=== PATIENT | female | born 1985 | race Hispanic/Latino ===

== ENCOUNTER 2017-01-10 08:27 | Inpatient (IN) | payer MEDICARE, OTHER ==
--- NOTE | 2017-01-10 09:06 | ED PDOC ---
Arrival/HPI - General Chief Complaint: Seizure Time Seen by Provider: 01/10/17 08:42 - History of Present Illness Narrative History of Present Illness (Text): 01/10/17 09:06 31yo female with hx of tuberous sclerosis and severe developmental delay, with mult seizures without return to baseline. Mother states she gave versed IM and pt has been placed on versed drip by EMS. Last seizure around 8am, and mother states pt is now back to baseline. States seizures were tonic contractions lasting [address] done within a month. Past Medical History - Provider Review Nursing Documentation Reviewed: Yes - Travel History If Yes, travel location?: [place] - Infectious Disease Hx of Infectious Diseases: None - Neurological Hx Seizures: Yes - HEENT Other/Comment: Non Verbal - Musculoskeletal/Rheumatological Other/Comment: Tuberous Sclerosis. VN Stimulator - Gastrointestinal Other/Comment: Peg Tube - Psychiatric Hx Substance Use: No - Surgical History Hx Cholecystectomy: Yes Other/Comment: VN Stimulator. Power Port. Peg Tube Family/Social History Family/Social History: Unknown Family HX Smoking Status: Never Smoked Hx Alcohol Use: No Hx Substance Use: No Allergies/Home Meds Allergies/Adverse Reactions: Allergies prochlorperazine [From Compazine] Allergy (Verified 01/10/17 08:42) ANAPHYLAXIS Causes patient to become unresponsive propofol Allergy (Verified 01/10/17 08:42) ANAPHYLAXIS Caused organ failure in patient vancomycin Allergy (Verified 01/10/17 08:42) ANAPHYLAXIS [place] Home Medications: Home Meds Medication Instructions Recorded Confirmed Brivaracetam [Briviact] 20 mg PO BID 01/10/17 01/10/17 Clobazam [Onfi] 20 mg PO BID 01/10/17 01/10/17 Clobazam [Onfi] 30 mg PO DAILY 01/10/17 01/10/17 Felbamate [Felbatol] 600 mg PO BID 01/10/17 01/10/17 Lansoprazole [Prevacid 24Hr] 5 ml PO BID 01/10/17 01/10/17 clonazePAM [clonAZEPAM] 1 mg PO TID 01/10/17 01/10/17 lamoTRIgine [LaMICtal] 125 mg PO TID 01/10/17 01/10/17 Review of Systems - Review of Systems Systems not reviewed;Unavailable: Altered Mental Status Physical Exam Appearance: Positive for: Non-Toxic, Comfortable Mental Status: No: Agitated, Lethargic - Systems Exam Head: Present: Atraumatic, Normocephalic Pupils: Present: PERRL Extroacular Muscles: Present: EOMI Conjunctiva: Present: Normal Mouth: Present: Moist Mucous Membranes Neck: Present: Normal Range of Motion Respiratory/Chest: Present: Clear to Auscultation, Good Air Exchange. No: Respiratory Distress, Accessory Muscle Use Cardiovascular: Present: Regular Rate and Rhythm, Normal S1, S2, Peripheal Pulses Present. No: Murmurs Abdomen: Present: Normal Bowel Sounds. No: Tenderness, Distention, Peritoneal Signs, Rebound, Guarding Back: Present: Normal Inspection Upper Extremity: Present: Normal Inspection. No: Cyanosis, Edema Lower Extremity: Present: Normal Inspection. No: Edema Neurological: Present: Motor Func Grossly Intact Skin: Present: Warm, Dry, Normal Color. No: Rashes Psychiatric: Present: Alert. No: Anxious, Agitated Medical Decision Making ED Course and Treatment: 01/10/17 09:01 31yo female with hx of tuberous sclerosis and severe developmental delay, with status epilepticus. Currently at baseline and not seizing. No acute findings on PE. No PM[place] [facility]. Joy in the ER, accepted to his service with Dr. Kern on consult mother aware of and agrees with plan - Lab Interpretations Lab Results: 01/10/17 09:27 01/10/17 09:27 Lab Results 01/10/17 09:29: PT 10.7, INR 0.99, APTT 24.3 01/10/17 09:27: Sodium 139, Potassium 4.5, Chloride 106, Carbon Dioxide 24, Anion Gap 14, BUN 10, Creatinine 0.7, Est GFR ( Amer) > 60, Est GFR (Non- Af Amer) > 60, Random Glucose 88, Calcium 8.4, Total Bilirubin 0.4, AST 39, ALT 70 H, Alkaline Phosphatase 145 H, Total Protein 6.5, Albumin 3.5, Globulin 3.0, Albumin/Globulin Ratio 1.2 01/10/17 09:27: WBC 7.7, RBC 3.78, Hgb 11.3 L, Hct 34.4 L, MCV 91.0, MCH 29.9, MCHC 32.8, RDW 13.5, Plt Count 342, MPV 8.4, Gran % 77.9 H, Lymph % (Auto) 18.2 L, [place] % (Auto) 3.7, Eos % (Auto) 0.1 L, Baso % (Auto) 0.1, Gran # 6.02, Lymph # 1.4, [place] # 0.3, Eos # 0.0, Baso # 0.01 I have reviewed the lab results: Yes Disposition/Present on Arrival - Present on Arrival Any Indicators Present on Arrival: No History of DVT/PE: No History of Uncontrolled Diabetes: No Urinary Catheter: No History of Decub. Ulcer: No History Surgical Site Infection Following: None - Disposition Have Diagnosis and Disposition been Completed?: Yes Diagnosis: Seizures Disposition: HOSPITALIZED Disposition Time: 09:01 Patient Plan: Admission Patient Problems: Current Active Problems Problem Status Onset Seizures Acute Condition: FAIR
[2017-01-10 09:35] LABS: BASO # 0.01 K/mm3 (0.0-2.0); BASO % 0.1 % (0.0-3.0); EOS % 0.1 % (1.5-5.0); GRAN # 6.02 (1.4-6.5); GRAN % 77.9 % (50.0-68.0); HEMOGLOBIN 11.3 gm/dL (12.0-16.0); LYMPH # 1.4 (1.2-3.4); LYMPH % 18.2 % (22.0-35.0); MEAN CORPUSCULAR HEMOGLOBIN 29.9 pg (25.0-35.0); MEAN CORPUSCULAR HGB CONC 32.8 g/dl (31.0-37.0); MEAN PLATELET VOLUME 8.4 fl (7.0-11.0); MONO # 0.3 (0.1-0.6); MONO % 3.7 % (1.0-6.0); PLATELET COUNT 342 10^3/uL (120.0-450.0); RBC 3.78 10^6/uL (3.5-6.1); RED CELL DISTRIBUTION WIDTH 13.5 % (11.5-14.5); WHITE BLOOD COUNT 7.7 10^3/ul (4.5-11.0)
[2017-01-10 09:45] LABS: ALB/GLOB RATIO 1.2 (1.1-1.8); ALBUMIN 3.5 g/dL (3.0-4.8); ALT/SGPT 70 U/L (7-56); AST/SGOT 39 U/L (15-39); BLOOD UREA NITROGEN 10 mg/dL (7-21); CALCIUM 8.4 mg/dL (8.4-10.5); GFR AFRICAN-AMERICAN > 60; GFR NON-AFRICAN AMERICAN > 60
[2017-01-10 09:48] LABS: INR 0.99 (0.93-1.08); PARTIAL THROMBOPLASTIN TIME 24.3 Seconds (23.7-30.8); PROTHROMBIN TIME 10.7 Seconds (9.9-11.8)
[2017-01-10] MEDS ORDERED: Midazolam 5 MG/5 ML VIAL IVP PRN (11:10)
[2017-01-10] MEDS ORDERED: Midazolam 100 mg/100ml in NS 100 MG/100 ML SOL IV PRN (11:13)
[2017-01-10] MEDS ORDERED: Sodium Chloride 0.45% 1,000 ML IV SCH (11:15)
[2017-01-10 12:15] VITALS: BMI 24.0
--- NOTE | 2017-01-10 14:32 | CON ---
DATE: 01/10/2017 CHIEF COMPLAINT: Seizures. HISTORY OF PRESENT ILLNESS: The patient is a 31-year-old female with history of tubular sclerosis and severe developmental delay with daily multiple seizures on 5 seizures medications Briviact, Onfi, felbamate, Lamictal, and has been compliant with her medications. According to her mother at bedside she is baseline, nonverbal, and follows very simple commands, but does feed herself. She was on a cruise ship, where she had breakthrough seizures and currently according to mother this is her baseline. She is currently with generalized tonic-clonic seizures lasting few seconds. Currently, she is on Versed 1 mg IV push q.4 hours p.r.n. just to break the seizures. Apparently, she is no longer seizing. She is doing well. She recently had a CAT scan previously. 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 She follows up with an epileptologist out of state. Mother is currently comfortable and saying this is her baseline. Currently, the patient is very drowsy. PAST MEDICAL HISTORY: Tubular sclerosis, severe developmental delay, and seizures. MEDICATIONS: Briviact, Onfi, felbamate, Lamictal, and clonazepam. ALLERGIES: ALLERGIC TO PROCHLORPERAZINE, PROPOFOL, AND VANCOMYCIN. FAMILY HISTORY: Noncontributory. SOCIAL HISTORY: No illicit drug use, smoking or EtOH abuse. REVIEW OF SYSTEMS: A 14-point review of system is negative except as in the HPI. PHYSICAL EXAMINATION: GENERAL: The patient is drowsy in no acute distress. VITAL SIGNS: Temperature 97.9, pulse rate 76, blood pressure 92/56, respiratory rate 18, and oxygen saturation 97% via nasal cannula of 2 L. HEENT: Head is atraumatic and normocephalic. PERRLA. Extraocular muscles intact. NECK: Supple. No JVD. No adenopathy noted. LUNGS: Clear to auscultation. No adventitious sounds. HEART: S1 and S2, normal rate and rhythm. No murmurs, rubs, or gallops. ABDOMEN: Soft, nontender, nondistended. Bowel sounds present. EXTREMITIES: Contracted at baseline. Peripheral pulses 2+ felt bilaterally. NEUROLOGIC: The patient is drowsy from the Versed, but cranial nerves II through XII intact. She is nonverbal at baseline. Withdrawals are localized. Spontaneous movements of the extremities are noted. Tone has contracted in upper and lower extremities from her underlying tubular sclerosis. 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 Sensory exam, withdrawal are localized, and toes are upcoming bilaterally. DTRs are 2+ throughout. Coordination and gait deferred for now. LABORATORY DATA: Sodium 139, potassium 4.5, chloride 106, carbon dioxide of 24, BUN 10, creatinine 0.7, and random glucose of 88. ASSESSMENT AND PLAN: This is a 31-year-old with history of tubular sclerosis, history of multiple seizures on 5 antiseizure medications and history of development delay and baseline nonverbal and follows only simple commands and does feed herself. She was on a cruise ship and had breakthrough seizures. Now was given Versed and seizures have stopped. She does have multiple seizures throughout the day. She really has 3 big seizures a month according to the mother. At this time, she is clinically neurologically stable. No further seizure activity. We will recommend to continue with home medications of Lamictal, brivaracetam, Clobazam, and felbamate on home dosages, which her mother will give her from her bag since we do not have it on formulary. Recommend to monitor in the ICU and give her Versed p.r.n. 1 mg IV push q.4 hours for seizure activity. At this time, she is neurologically stable and seizure-free and she is now back her baseline. Continue her present management and monitor electrolytes and correct accordingly. Thank you for this consult. Bari Kern MD
[2017-01-10] MEDS: Midazolam 2 MG/2 ML VIAL IVP SCH ×2 (14:37→22:30)
--- NOTE | 2017-01-10 16:03 | HP ---
SUBJECTIVE: I was called onto the emergency to see the patient. She is a 31-year-old developmentally delayed female with tuberculosis who comes in with ceasing. She has done this before. She is taken care by her mother who has been giving her IM Versed. She is on IV Versed drip from the ship, and she has not gone back to her baseline yet from [place] via [place]. She had a CAT scan done a month ago. She does this all the time she is coming back from her [employer] [place], history of seizures, nonverbal, tuberculosis with VN stimulator which is PEG tube. She has a history of cholecystectomy VN stimulator, power port PEG tube. FAMILY HISTORY: Unknown family. SOCIAL HSITORY: Never smoker, no alcohol, no drug. ALLERGIES: COMPAZINE, PROPOFOL AND VANCOMYCIN. MEDICATIONS: She is on Briviact, Onfi Prevacid, clonazepam, Lamictal and Versed as needed IN. On US system she is out of it. PHYSICAL EXAMINATION: GENERAL: Mentally, she just stairs. VITAL SIGNS: There are no vital signs on the chart or in the computer or in the notes in the dictation that I could find. HEENT: Atraumatic and normocephalic. EYES: Open, nonverbal. HEAR: Regular rate. Normal S1 and S2. LUNGS: Decreased breath sounds, but clear to auscultation bilaterally. ABDOMEN: Soft and nontender. Positive bowel sounds. No apparent guarding or rebound. EXTREMITIES: Have no edema. Her eyes are open. The skin is intact. Nonverbal. Thyroid midline, no appreciative lymphadenopathy anywhere. She did have a blood test done. It is 139 sodium, potassium 4.5, BUN 10, creatinine 0.7, GFR is greater than 60, sugar is 88, calcium is 8.4, total bilirubin is 0.6, AST is 39, ALT 70, alkaline phosphatase 147, total protein is 6.9, and albumin is 3.5, globulin is 3. INR is 0.99. White count 7.7, hemoglobin 11.3, hematocrit 34.4, palettes are 342. No tests are done. There is a consult with neurology, Dr. Kern will discuss this with him. We will continue the IV Versed I put her back on the other medications that were mentioned earlier, IV fluids. We will check her labs tomorrow and she will do well and improve. Andrés Joy DO MTDD
[2017-01-10 16:46] LABS: ARTERIAL BLOOD GAS HCO3 24.3 mmol/L (21-28); ARTERIAL BLOOD GAS O2 SAT 98.7 % (95-98); ARTERIAL BLOOD GAS PCO2 42 mm/Hg (35-45); ARTERIAL BLOOD GAS PH 7.37 (7.35-7.45); ARTERIAL BLOOD GAS TCO2 25.6 mmol.L (22-28)
[2017-01-10] MEDS ORDERED: Pantoprazole 40 mg Susp UD PO SCH (18:00)
[2017-01-10] MEDS ORDERED: BRIVARACETAM 10 MG/ML PO SCH (18:00)
[2017-01-10] MEDS ORDERED: FELBAMATE 400 MG PO SCH (18:00)
[2017-01-10] MEDS ORDERED: CLOBAZAM 30 MG PO SCH (21:00)
--- NOTE | 2017-01-10 22:34 | CARD ---
APPROVED REPORT EKG Measurement Heart [id number] <Conclusion> Normal sinus rhythm Normal ECG
[2017-01-10 23:27] VITALS: TEMP 98.4
--- NOTE | 2017-01-11 00:47 | CON ---
DATE: 01/10/2017 HISTORY OF PRESENT ILLNESS: The patient is a 31-year-old lady with history of mental retardation, tuberous sclerosis, and WAN who presented to [facility] with breakthrough seizures. Even though clinical seizures stopped , she would still require frequent benzos pushes to avoid seizures The patient was seen by neurology service. Her home medications were restarted and Versed 2 mg every 4 hours initiated. As per my conversation with neurology service ( Dr.Ashish Kern), the patient is not in status epilepticus and does not require continuous drip of benzodiazepines, thus no need for intubation for airway protection. Nevertheless, the patient may require ICU admission for monitoring her airways, mental and neurological status. No fever. No chills. No sweats. No nausea. No vomiting. No diarrhea. No constipation. PAST MEDICAL HISTORY: Tuberous sclerosis, seizures disorder, WAN, and developmental delay. ALLERGIES: PROCHLORPERAZINE, PROPOFOL, AND VANCOMYCIN. HOME MEDICATIONS: Brivaracetam, clobazam, felbamate, Nexium, clonazepam, and lamotrigine. REVIEW OF SYSTEMS: Review of 12-point review of system other than mentioned in history of present illness is negative. FAMILY HISTORY: Noncontributory. SOCIAL HISTORY: No alcohol or illicit drug abuse. No tobacco smoking. PHYSICAL EXAMINATION: VITAL SIGNS: Temperature 97.9, blood pressure 101/67, respiratory rate 20, oxygen saturation 99% on nasal cannula, heart rate 77. HEENT: Head and neck atraumatic. LUNGS: Clear to auscultation bilaterally. HEART: Regular rate and rhythm. S1 and S2 normal. ABDOMEN: Soft, nontender, and nondistended. MUSCULOSKELETAL: Some muscular dystrophy in the lower extremities (the patient is not wheelchair bound as per mother at bedside). No C/C/E. NEUROLOGIC: The patient is sedated with Versed. SKIN: Moist. PSYCHIATRIC: The patient is sedated. LABORATORY DATA: WBC 7.7, hemoglobin 11.3, platelet count 342. Sodium 139, potassium 4.5, chloride 106, carbon dioxide 24, BUN 10, creatinine 0.7, glucose 88. AST 39, ALT 70, alkaline phosphatase 145. MEDICATIONS IN THE HOSPITAL: Normal saline 30 mL/hour, Briviact, Onfi, Klonopin, Salbetol, lamotrigine, Lamictal, Versed 2 mg IV q.4 hour. ASSESSMENT AND PLAN: This is a 31-year-old lady with severe developmental delay, tuberous sclerosis, and lymphangioleiomyomatosis, who presented with breakthrough seizures. As per neurology service and the patient's mom who is at bedside; however, this is frequent occurence due to patient underlying disease. it was recommended by neurology service to proceed with benzodiazepines, IV pushes every 4 hours on a standing basis for today. The patient is started on Versed 2 mg IV q.4. We will monitor her airway, respiratory, and neuro status. We will proceed with ABG to make sure the patient is not retaining CO2 and not hypoventilating. We will continue to target euvolemia, euglycemia, normothermia and oxygen saturation more than 90%. We will continue with deep venous thrombosis and gastrointestinal prophylaxis. ccm time 40 min Corey Norman MD MTDZiyad
[2017-01-11 02:22] VITALS: BP 91/56; PULSE 80; RESP 79; O2SAT 96
[2017-01-11] MEDS: Midazolam 2 MG/2 ML VIAL IVP SCH (02:30)
[2017-01-11 06:44] LABS: HEMOGLOBIN 10.7 gm/dL (12.0-16.0); MEAN CELL VOLUME 91.5 fL (80.0-105.0); MEAN CORPUSCULAR HEMOGLOBIN 29.5 pg (25.0-35.0); MEAN CORPUSCULAR HGB CONC 32.2 g/dl (31.0-37.0); MEAN PLATELET VOLUME 8.5 fl (7.0-11.0); RBC 3.63 10^6/uL (3.5-6.1); RED CELL DISTRIBUTION WIDTH 13.6 % (11.5-14.5); WHITE BLOOD COUNT 5.2 10^3/ul (4.5-11.0)
[2017-01-11 06:49] LABS: ALB/GLOB RATIO 1.1 (1.1-1.8); ALBUMIN 3.3 g/dL (3.0-4.8); ALT/SGPT 56 U/L (7-56); AST/SGOT 38 U/L (15-39); BLOOD UREA NITROGEN 8 mg/dL (7-21); CALCIUM 8.5 mg/dL (8.4-10.5); GFR AFRICAN-AMERICAN > 60; GFR NON-AFRICAN AMERICAN > 60
[2017-01-11] MEDS ORDERED: CLOBAZAM 20 MG PO SCH (09:00)
--- NOTE | 2017-01-11 18:44 | CARD ---
APPROVED REPORT EKG Measurement Heart [id number] <Conclusion> Normal sinus rhythm Normal ECG
--- NOTE | 2017-01-12 00:39 | DS ---
HISTORY OF PRESENT ILLNESS: The patient is a very interesting patient. She has been taking care of by her mother for the past 29 years. She has a history of seizures, tuberous sclerosis, developmentally delayed and she needs care which the mother takes care of her. She gives her oral mediations. She has been through this breakthrough seizures many, many times in the past. She is now off the IV medications for the past 24 hours which is IV Versed. The mother states she has oral medications the pill that she needs. She has done it many, many times in the past staying in the hospital. She is now in the intensive care unit because they cannot do Versed IV on the floor. She is back to her baseline and the mother wants to take her back to [place], she is [place] [employer]. PHYSICAL EXAMINATION: VITAL SIGNS: 98.4 temperature, 82 pulse, 92/58 blood pressure, 17 respiratory rate and 100% O2 saturation. HEENT: Head is atraumatic and normocephalic. HEART: Regular rate. LUNGS: Clear to auscultation. ABDOMEN: Soft. EXTREMITIES: Mildly contracted, but at her baseline. MEDICATIONS: She was on Briviact, Onfi,, Klonopin, Lamictal, Protonix, IV fluids, Versed. LABORATORY DATA: She has a 127 sodium, potassium 4.1, BUN is 8, creatinine 0.7. GFR is greater than 60, sugar is 78, calcium is 8.5, total bilirubin is 0.5, AST is 38, ALT is 56, alkaline phosphatase 121, total protein 6.3,albumin is 3.3, globulin is 3, INR is 0.99. White count 5.2, hemoglobin 10.7, hematocrit 33.2 and platelets are 293. The mother wants to take her home back to [place]. She is back to her baseline. She is off the IV medications. Mother has oral medications that she gives her. We will discharge her. She had a breakthrough seizure. She has done this many, many times in the past. She has tuberous sclerosis and developmentally delayed. She will be discharged. Andrés Joy DO [facility] # [id number] MTDZiyad
== END 2017-01-11 11:06 | disposition home or self-care (01) | DRG 100 ==
LOC: ED 08:27 → ERH 09:48 → CCU 13:34
PROVIDERS: ADMIT Family Medicine; ATTEND Family Medicine
DX: G40.409 Other generalized epilepsy and epileptic syndromes, not intractable, without status epilepticus (principal); J84.81 Lymphangioleiomyomatosis; Q85.1 Tuberous sclerosis; R62.50 Unspecified lack of expected normal physiological development in childhood; F79 Unspecified intellectual disabilities; Z90.49 Acquired absence of other specified parts of digestive tract